=== PATIENT | female | born 1990 | race Hispanic/Latino ===

== ENCOUNTER 2019-07-22 10:58 | Inpatient (IN) | payer OTHER ==
[~2019-07-22] VITALS: Ht 157.5 cm; Wt 64.0 kg
[2019-07-22] MEDS ORDERED: LACTATED RINGERS 1000ML 1,000 ML IV ONE (11:33)
[2019-07-22 12:33] LABS: HEMATOCRIT 35.6 % (36-48); MEAN CORPUSCULAR HEMOGLOBIN 34.1 pg (27.0-33.0); MEAN CORPUSCULAR HGB CONC 34.8 g/dL (32.0-36.0); MEAN CORPUSCULAR VOLUME 97.8 fL (79-99); PLATELET COUNT (AUTO) 180 K/uL (130-400); RED BLOOD CELL COUNT(AUTO) 3.64 MIL/uL (4.00-5.50); RED CELL DISTRIBUTION WIDTH 13.4 % (11.0-15.5); WHITE BLOOD COUNT (AUTO) 7.6 K/uL (4.8-10.8)
[2019-07-22] MEDS ORDERED: AMPICILLIN 2GM+NS 100ML 100 ML IV ONE (13:40)
[2019-07-22] MEDS ORDERED: EPHEDRINE SULFATE 50 MG/ML AMPULE IVP PRN (14:15)
[2019-07-22] MEDS ORDERED: LACTATED RINGERS 500 ML 500 ML IV PRN (14:15)
[2019-07-22] MEDS ORDERED: PROMETHAZINE HCL 25 MG/ML 1ML AMPULE IM PRN (14:15)
[2019-07-22] MEDS ORDERED: MEPERIDINE-PF 50 MG/ML SYG IVP PRN (14:15)
[2019-07-22] MEDS ORDERED: NALOXONE HCL 0.4 MG/1 ML ML IV PRN (14:15)
[2019-07-22] MEDS ORDERED: OXYTOCIN-LR 20 UNITS/1000 ML 1,000 ML IV SCH (14:30)
[2019-07-22] MEDS: LACTATED RINGERS 1000ML 1,000 ML IV PRN (17:11)
[2019-07-22] MEDS: AMPICILLIN 2GM+NS 100ML 100 ML IV SCH (19:38)
[2019-07-23] MEDS: AMPICILLIN 2GM+NS 100ML 100 ML IV SCH ×2 (01:32→07:31)
[2019-07-23] MEDS: LACTATED RINGERS 1000ML 1,000 ML IV PRN (01:33)
[2019-07-23] MEDS ORDERED: OXYTOCIN 10 USP UNITS/ML 20 UNIT in LACTATED RINGERS 1000ML 1,000 ML IV SCH (04:00)
[2019-07-23 08:13] LABS: HEPATITIS Bs ANTIGEN SCREEN P Negative (Negative)
[2019-07-23] MEDS ORDERED: LIDOCAINE HCL 1% 20 ML VIAL ONE (09:33)
[2019-07-23] MEDS ORDERED: WITCH HAZEL 1 PAD TP PRN (11:00)
[2019-07-23] MEDS ORDERED: LANOLIN 30GM OINTMENT TP PRN (11:00)
[2019-07-23] MEDS ORDERED: DIPH,PERTUSS(ACELL),TET VAC/PF 0.5 ML VIAL IM PRN (11:00)
[2019-07-23] MEDS ORDERED: ACETAMINOPHEN-CODEINE 300/30MG TAB PO PRN (11:00)
[2019-07-23] MEDS ORDERED: OXYTOCIN-LR 20 UNITS/1000 ML 1,000 ML IV SCH (11:00)
[2019-07-23] MEDS ORDERED: BENZOCAINE/LANOLIN/ALOE VERA 60 ML AEROSOL TP PRN (11:00)
[2019-07-23 14:25] VITALS: BP 118/60
[2019-07-23 19:14] VITALS: BP 124/76
[2019-07-23] MEDS: IBUPROFEN 600 MG TABLET PO PRN (21:07)
[2019-07-23] MEDS: DOCUSATE SODIUM 100 MG CAP PO SCH (21:07)
[2019-07-24 00:06] VITALS: BP 109/70
[2019-07-24] MEDS: AMPICILLIN 2GM+NS 100ML 100 ML IV SCH (00:15)
[2019-07-24 03:36] VITALS: BP 108/74
[2019-07-24 07:23] VITALS: BP 110/61
[2019-07-24] MEDS: IBUPROFEN 600 MG TABLET PO PRN (09:19)
[2019-07-24] MEDS: DOCUSATE SODIUM 100 MG CAP PO SCH (09:19)
--- NOTE | 2019-07-24 11:15 | NUR ---
Verbal and written discharge instructions given, informed of the follow up appointment, prescription given, all questions answered, informed to call the doctor for future concerns. pt voiced understanding to all things discussed. Addendum: 07/24/19 at 1129 by ARACELI ZHAO RN Amended: Links added.
[2019-07-24 11:43] VITALS: BP 118/69
--- NOTE | 2019-07-24 13:40 | NUR ---
Pt is dismissed, brought to private car via wheelchair. pt is in stable condition Addendum: 07/24/19 at 1403 by ARACELI ZHAO RN Amended: Links added.
== END 2019-07-24 13:40 | disposition home or self-care (01) | DRG 807 ==
LOC: OBSVTOIN 10:58 → LDH 10:58 → WSH 07-23 12:00
PROC: 10E0XZZ Delivery of Products of Conception, External Approach (ICD-10-PCS; principal; 2019-07-23)
PROC: 3E0234Z Introduction of Serum, Toxoid and Vaccine into Muscle, Percutaneous Approach (ICD-10-PCS; 2019-07-23)
PROC: 3E0R3BZ Introduction of Anesthetic Agent into Spinal Canal, Percutaneous Approach (ICD-10-PCS; 2019-07-23)
PROC: 00HU33Z Insertion of Infusion Device into Spinal Canal, Percutaneous Approach (ICD-10-PCS; 2019-07-23)
DX: O71.82 Other specified trauma to perineum and vulva (principal); Z37.0 Single live birth; Z23 Encounter for immunization; Z3A.37 37 weeks gestation of pregnancy
CPT/HCPCS: 36415; 85027; 86592; 86850; 86900; 86901; 87340; 90715; A4314; G0378; J0290; J2590; J7120

== ENCOUNTER 2021-03-02 11:44 | Emergency (ER) | payer BC, OTHER ==
[~2021-03-02] VITALS: Ht 157.5 cm; Wt 51.7 kg
[2021-03-02 12:53] LABS: HEMATOCRIT 40.6 % (36-48); LYMPHOCYTES % (AUTO) 36.6 % (21.0-51.0); MEAN CORPUSCULAR HEMOGLOBIN 31.8 pg (27.0-33.0); MEAN CORPUSCULAR VOLUME 96.2 fL (79-99); MONOCYTES % (AUTO) 5.5 % (3.0-13.0); NEUTROPHILS % (AUTO) 55.6 % (40.0-77.0); PLATELET COUNT (AUTO) 267 K/uL (130-400); RED BLOOD CELL COUNT(AUTO) 4.22 MIL/uL (4.00-5.50); RED CELL DISTRIBUTION WIDTH 12.2 % (11.0-15.5)
[2021-03-02 12:55] LABS: CREATININE 0.8 mg/dL (0.5-1.5); POTASSIUM 3.9 mmol/L (3.5-5.1)
[2021-03-02 12:56] LABS: APPEARANCE,URINE Clear (CLEAR); BILIRUBIN,URINE Negative (NEGATIVE); COLOR,URINE Yellow (YELLOW); GLUCOSE, URINE (UA) Negative (NEGATIVE); KETONES,URINE Negative (NEGATIVE); LEUKOCYTE ESTERASE ,URINE Trace (NEGATIVE); NITRATE,URINE Negative (NEGATIVE); OCCULT BLOOD,URINE Large (NEGATIVE); PROTEIN,URINE Negative (NEGATIVE); UROBILINOGEN,URINE 0.2 mg/dL (0.2-1.0)
[2021-03-02 13:10] LABS: ALBUMIN 3.9 g/dL (3.5-5.0); BILIRUBIN,TOTAL 0.4 mg/dL (0.2-1.0); TOTAL PROTEIN, SERUM 7.7 g/dL (6.0-8.3)
[2021-03-02 13:41] LABS: BACTERIA,URINE Few /HPF (None Seen); RBC,URINE 0-1 /HPF (0-1)
[2021-03-02] MEDS ORDERED: LIDOCAINE HCL-MPF 1% 2ML VIAL ONE (14:22)
[2021-03-02] MEDS ORDERED: CEPH500B PO (14:26)
[2021-03-02] MEDS ORDERED: CEFTRIAXONE 1G VIAL IM ONE (14:30)
[2021-03-02 15:00] VITALS: BP 113/63
== END 2021-03-02 15:02 | disposition home or self-care (01) ==
LOC: EDH 11:44
DX: O20.0 Threatened abortion (principal); O23.41 Unspecified infection of urinary tract in pregnancy, first trimester; Z3A.01 Less than 8 weeks gestation of pregnancy
CPT/HCPCS: 36415; 76801; 80053; 81001; 84702; 85025; 86900; 86901; 99284; J0696; J3490; 96372